=== PATIENT | male | born 1990 | race Caucasian/White ===

== ENCOUNTER 2016-04-07 12:19 | Inpatient (IN) | payer OTHER ==
--- NOTE | ~2016-04-07 | DS ---
Unit #: [id number] #: [id number] Patient: KHADIJAH APARICIO [id number] [facility] [address] [place] [address] [id number] MR#: [id number] NAME: KHADIJAH APARICIO ROOM: [facility] Age: 25 Sex: M Admission Date: 04/07/2016 : 1990 Discharge Date: 04/12/2016 Attending Physician: Hugh Godinez M.D. Primary Care Physician: Generic Doctor Not In System DISCHARGE SUMMARY REASON FOR ADMISSION Depression. DIAGNOSTIC STUDIES LABORATORY RESULTS: Unremarkable. HOSPITAL COURSE The patient was admitted to inpatient unit on 04/07/2016 and discharged on 04/12/2016. The patient was treated on the inpatient unit with expressive therapy, medication management, psychoeducation, and psychotherapy. The patient was on 72-hour hold. The patient responded well with the above modalities of treatment. Family was involved. The patient was subsequently discharged with a plan to follow up in outpatient program. DISCHARGE MEDICATIONS Zyprexa 10 mg daily for psychosis, Lamictal 50 mg b.i.d. for mood stabilization, and trazodone 50 mg at bedtime for sleep. DISCHARGE DIAGNOSES Psychiatric: 1. Bipolar mood disorder, not otherwise specified, currently in manic state, F33.13. 2. Cannabis abuse, moderate, F12.20, by history. Secondary diagnosis: Deferred. Medical diagnosis: None. Stressors: Psychosocial stressors. DISCHARGE INSTRUCTIONS The patient is to follow up in outpatient clinic as per vp digital marketing social media and crm. CONDITION ON DISCHARGE The patient was pleasant and cooperative. Denied any psychotic symptom or any suicidal ideation. PROGNOSIS Guarded. DIET AND ACTIVITY As tolerated. Unit #: [id number] #: [id number] Patient: KHADIJAH APARICIO Dictated by... Hugh Godinez M.D. SZC/shane TD: 04/12/2016 22:33 JOB #: [id number] DISCHARGE SUMMARY X Hugh Godinez MD X DISCHARGE SUMMARY
--- NOTE | ~2016-04-07 | PN ---
Unit #: [id number] #: [id number] Patient: KHADIJAH APARICIO [id number] [facility] [address] [place] [address] [id number] I MR#: [id number] NAME: KHADIJAH APARICIO ROOM: P123 Age: 25 Sex: M Admission Date: 04/07/2016 : 1990 Attending Physician: Hugh Godinez M.D. Admitting Physician: Hugh Godinez M.D. Primary Care Physician: Erik Doctor Not In System [facility] PROGRESS NOTES DATE 04/08/2016 DISCUSSION Khadijah Aparicio is a 25-year-old male seen on 04/08/2016. The patient interviewed, chart reviewed. Obtained information from nursing staff. The patient's labs showed CBC unremarkable. Thyroid function test within normal range. The patient's vital signs 97.3, 59, 16, 106/53. The patient's behavior continues to be bizarre, isolative, guarded, flat, affect withdrawn. The patient did not show any aggressive behavior. Compliant with medication, guarded, isolative. Complete review of systems unremarkable. MENTAL STATUS EXAMINATION General appearance, the patient dressed casually. Attention span and concentration poor. Oriented to place. Mood and affect sad, dysphoric flat. Speech minimum. Thought process circumstantial, guarded. Recent and remote memory poor, guarded, paranoid. Delusions but denied any thoughts of harming or others. Insight and judgement poor. DIAGNOSES 1. Bipolar mood disorder NOS. 2. Cannabis abuse moderate. ASSESSMENT/PLAN Advise to continue with current medication and therapeutic protocol. We will monitor response to medication and make further adjustment of medication. Dictated by... Julián Nelson/nidhi TD: 04/11/2016 21:52 JOB #: [id number] Unit #: [id number] #: [id number] Patient: KHADIJAH APARICIO PROGRESS NOTES X Hugh Godinez MD PROGRESS NOTE
--- NOTE | ~2016-04-07 | PN ---
Unit #: [id number] #: [id number] Patient: KHADIJAH APARICIO [id number] [facility] [address] [place] [address] [id number] I MR#: [id number] NAME: KHADIJAH APARICIO ROOM: P123 Age: 25 Sex: M Admission Date: 04/07/2016 : 1990 Attending Physician: Hugh Godinez M.D. Admitting Physician: Hugh Godinez M.D. Primary Care Physician: Generic Doctor Not In System [facility] PROGRESS NOTES DATE OF SERVICE: 04/09/2016 DISCUSSION Khadijah Aparicio is a 25-year-old male, seen on 04/09/2016. The patient interviewed, chart reviewed, obtained information from nursing staff. The patient was compliant and cooperative. Mood is sad, dysphoric, flat affect, guarded. The patient is still having paranoia, mood lability, suicidal ideation. REVIEW OF SYSTEMS Complete review of systems is unremarkable. MENTAL STATUS EXAMINATION General appearance; the patient dressed casually. Attention span and concentration, fair. Oriented in place and person. Mood and affect; labile, guarded, paranoid. Recent and remote memory, poor. Insight and judgment, poor. DIAGNOSIS Bipolar mood disorder, not otherwise specified. ASSESSMENT AND PLAN Advised to continue with current medication and therapeutic protocol. We will monitor response to medication and make further adjustment of medication. Dictated by... Julián Nelson/shane TD: 04/11/2016 06:19 JOB #: [id number] Unit #: [id number] #: [id number] Patient: KHADIJAH APARICIO PROGRESS NOTES X Hugh Godinez MD PROGRESS NOTE
--- NOTE | ~2016-04-07 | PN ---
Unit #: [id number] #: [id number] Patient: KHADIJAH APARICIO [id number] [facility] [address] [place] [address] [id number] I MR#: [id number] NAME: KHADIJAH APARICIO ROOM: P123 Age: 25 Sex: M Admission Date: 04/07/2016 : 1990 Attending Physician: Hugh Godinez M.D. Admitting Physician: Hugh Godinez M.D. Primary Care Physician: Generic Doctor Not In System [facility] PROGRESS NOTES DATE 04/10/2016 DISCUSSION Khadijah Aparicio is a 25-year-old male seen on 04/10/2016. Patient continues to be guarded, paranoid but able to maintain safe behavior. Compliant with medication. No side effects from medication. Patient reported having trouble sleeping, mood lability, circumstantial thought process. Complete review of system unremarkable. MENTAL STATUS EXAMINATION General appearance, patient dressed casually. Attention span, concentration fair. Oriented in place and person. Mood and affect labile, guarded, paranoid. Patient denied any thoughts of harming self or others or any psychotic symptoms. Denied any thoughts of harming self or others but guarded, paranoid. Recent and remote memory poor. Insight and judgement poor. DIAGNOSES 1. Psychosis NOS. 2. Bipolar mood disorder NOS. ASSESSMENT/PLAN Advised to continue with current medication and therapeutic protocol. Will monitor response to medication and make further adjustment of medication. Dictated by... Julián Nelson/talya TD: 04/12/2016 20:07 JOB #: [id number] Unit #: [id number] #: [id number] Patient: KHADIJAH APARICIO [facility] PROGRESS NOTES X Hugh Godinez MD X PROGRESS NOTE
--- NOTE | ~2016-04-07 | PN ---
Unit #: [id number] #: [id number] Patient: KHADIJAH APARICIO [id number] [facility] [address] [place] [address] [id number] I MR#: [id number] NAME: KHADIJAH APARICIO ROOM: P123 Age: 25 Sex: M Admission Date: 04/07/2016 : 1990 Attending Physician: Hugh Godinez M.D. Admitting Physician: Hugh Godinez M.D. Primary Care Physician: Generic Doctor Not In System [facility] PROGRESS NOTES DATE OF SERVICE: 04/11/2016 DISCUSSION Khadijah Aparicio is a 25-year-old male, seen on 04/11/2016. The patient interviewed, chart reviewed, and obtained information from nursing staff. The patient was compliant and cooperative. Mood was sad, dysphoric, flat affect, guarded. The patient was able to maintain safe behavior, no aggression, making progress. Complete review of systems unremarkable. MENTAL STATUS EXAMINATION General appearance, the patient dressed casually. Attention span and concentration, fair. Oriented in place and person. Mood and affect were labile. Speech, rapid. Thought process, circumstantial. The patient denied any thoughts of harming self or others, but guarded. Recent and remote memory, poor. Insight and judgment, poor. DIAGNOSIS Bipolar mood disorder, not otherwise specified. ASSESSMENT AND PLAN Advised to continue with current medication and therapeutic protocol with a plan to consider discharge tomorrow if the patient continues to do well. If needed, consider further adjustment of medication. Dictated by... Julián Nelson/shnae TD: 04/11/2016 17:32 JOB #: [id number] [facility] PROGRESS NOTES X Hugh Godinez MD PROGRESS NOTE
--- NOTE | ~2016-04-07 | HP ---
Unit #: [id number] #: [id number] Patient: KHADIJAH APARICIO [id number] [facility] [address] [place] [address] [id number] I MR#: [id number] NAME: KHADIJAH APARICIO ROOM: P123 Age: 25 Sex: M Admission Date: 04/07/2016 : 1990 Attending Physician: Hugh Godinez M.D. Admitting Physician: Hugh Godinez M.D. Primary Care Physician: Generic Doctor Not In System HISTORY AND PHYSICAL HISTORY OF PRESENT ILLNESS Khadijah is a 25-year-old male admitted on 04/07/[address] [place] [address] for what he reports as anger per records. He has a diagnosis of bipolar disorder. His father reports that he has been off of his medications. PAST MEDICAL HISTORY None. PAST SURGICAL HISTORY 1. Inguinal hernia repair. 2. Tonsillectomy. ALLERGIES No known drug allergies. SOCIAL HISTORY History of tobacco use. Occasional alcohol use and occasional marijuana use. He is currently single and living with his parents and his brother. FAMILY HISTORY Noncontributory. REVIEW OF SYSTEMS CONSTITUTIONAL: No fever or chills. HEENT: Denies any sore throat, ear pain or runny nose. CARDIOVASCULAR: Denies chest pain, irregular heart rhythm or palpitations. CHEST: Denies shortness of breath or cough. No hemoptysis. GASTROINTESTINAL: Denies nausea, vomiting, diarrhea or chronic constipation. ENDOCRINE: Denies history of increased thirst or urination. No recent significant weight loss or gain. GENITOURINARY: Denies dysuria, frequency, or hematuria. SKIN: Denies any rashes. HEMATOLOGIC: Denies history of increased bleeding or bruising. MUSCULOSKELETAL: Denies any hot, swollen joints. No generalized muscle pain. NEUROLOGIC: Denies problems with vision or speech. No frequent, severe headaches. No numbness, tingling or weakness in any extremities. Denies loss of bladder or bowel control. CURRENT MEDICATIONS 1. Zyprexa. 2. Lamictal. Unit #: [id number] #: [id number] Patient: KHADIJAH APARICIO PHYSICAL EXAMINATION GENERAL: Alert, oriented, in no acute distress. VITAL SIGNS: Blood pressure 135/73, heart rate 80, respirations 18. HEIGHT: 5 feet 7. WEIGHT: 157 pounds. SKIN: Warm and dry without rash or lesion. HEENT: Normocephalic. TMs not viewed. Oral and nasal passages clear. Conjunctivae clear. PERRLA. EOMs intact. NECK: Supple without lymphadenopathy or thyromegaly. HEART: Regular rate and rhythm without murmur. LUNGS: Clear. ABDOMEN: Soft, nontender, without masses or hepatosplenomegaly. : Not done. EXTREMITIES: No evidence of cyanosis, clubbing or edema. Moves all without focal deficit. NEUROLOGICAL: Grossly within normal limits. Cranial Nerves: II: Visual mcgill are intact. III, IV AND : Extraocular movements are intact. Pupils are equal, round and reactive to light. V: Facial sensation is grossly normal. VII: Facial movements and expression are normal. VIII: Auditory acuity grossly intact. IX, X: Uvula is midline. Phonation is normal. XI: Patient shrugs shoulders and turns head normally. XII: Tongue protrudes in the midline. Sensory and Motor Function: Sensory and motor sensation is grossly normal. Motor: moves all extremities well. Coordination: Gait is normal. Deep Tendon Reflexes: Intact. IMPRESSION Psychiatric admission. RECOMMENDATIONS PSYCHIATRIC: Per psychiatrist. MEDICAL: No contraindications to participate in facility's activities. MEDICAL PROGNOSIS Good. MEDICAL CONDITION Stable. Dictated by..Tom Mora/talya TD: 04/08/2016 16:58 JOB #: [id number] Unit #: [id number] #: [id number] Patient: KHADIJAH APARICIO HISTORY AND PHYSICAL X ANDRE SALGUERO APRN HISTORY AND PHYSICAL
--- NOTE | ~2016-04-07 | PA ---
Unit #: [id number] #: [id number] Patient: KHADIJAH APARICIO [id number] [facility] [address] [place] [address] [id number] I MR#: [id number] NAME: KHADIJAH APARICIO ROOM: [facility] Age: 25 Sex: M Admission Date: 04/07/2016 : 1990 Date of Assessment: 04/07/2016 Attending Physician: Hugh Godinez M.D. Admitting Physician: Hugh Godinez M.D. Primary Care Physician: Generic Doctor Not In System PSYCHIATRIC ASSESSMENT INFORMANTS The patient reliability, fair informant and chart reliability, good. CHIEF COMPLAINT Depression. HISTORY OF PRESENT ILLNESS Mr. Khadijah Aparicio is a 25-year-old male, seen on 04/07/2016. The patient has a history of previous treatment on an outpatient basis and inpatient at [facility]. The patient lives with his parents. The patient's family brought the patient due to jason. The patient reported that he had brain cancer and in head because of his sins. The patient did require medication so for bizarre behavior. The patient was trying to eat vomit; then after cleaning his hand with a him specialists, he attempted to lick the him specialists, bizarre behavior, guarded, paranoid, delusional. The patient was unable to give any reliable information. Reported self-harming behavior. According to the father, there are 4 or 5 family members on the paternal side of the family committed suicide. The patient needed inpatient admission at this time for psychiatric stabilization. PAST PSYCHIATRIC HISTORY Remarkable for history of previous treatment at [facility] and at [facility]. FAMILY HISTORY AND SOCIAL HISTORY Family history is remarkable for history of alcoholism and depression in brother. History of 4 to 5 family members on paternal side of the family committed suicide. No known history of any abuse. MEDICAL HISTORY Unremarkable for any chronic medical condition. Musculoskeletal; muscle strength and tone, no atrophy or abnormal movement. Gait normal. MEDICATION HISTORY The patient is on Ambien, amoxicillin, Levaquin, and Zyprexa. ALLERGIES No known drug allergies. SUBSTANCE ABUSE HISTORY History of marijuana abuse, details unknown at this time. REVIEW OF SYSTEMS Unit #: [id number] #: [id number] Patient: KHADIJAH APARICIO HEENT: Eyes, clear. Ears, nose, mouth, and throat; clear. CARDIOVASCULAR: Unremarkable. RESPIRATORY: Unremarkable. GI: Unremarkable. : Unremarkable. SKIN: Unremarkable. LYMPH NODE: Unremarkable. NEUROLOGIC: Unremarkable. ENDOCRINE: Unremarkable. HEMATOLOGIC: Unremarkable. ALLERGIC/IMMUNOLOGIC: Unremarkable. MUSCULOSKELETAL: Muscle strength and tone, no atrophy or abnormal movement. Gait normal. MENTAL STATUS EXAMINATION CONSTITUTIONAL: Measurement of vital signs; temperature 98.2, pulse 60, respiratory rate 20, blood pressure 116/65, height 5 feet 7 inches, weight 157 pounds. GENERAL APPEARANCE: The patient dressed casually. The patient did not show any facial deformity. MUSCULOSKELETAL: Please see above. PSYCHIATRIC EXAMINATION Description of speech, slow. Description of thought process, circumstantial. Description of association; guarded, paranoid, delusional, and mood lability. Description of the patient's judgment, concerning everyday activity, poor. Social situation, poor. Concerning psychiatric condition, poor. Complete mental status examination; oriented in place. Attention span and concentration, poor. Language, able to name object. Fund of knowledge, poor. Vocabulary, poor. Mood and affect, labile. Insight and judgment, poor. ASSETS AND LIABILITIES Assets, the patient is articulate. Liability, history of psychosis and substance abuse. ADMITTING DIAGNOSES Psychiatric: Bipolar mood disorder, severe, currently in a manic state, F33.13 and cannabis abuse, moderate, F12.20. Secondary diagnosis: Deferred. Medical diagnosis: None. Stressors: Psychosocial stressors. PSYCHIATRIC PLAN AND TREATMENT GOAL AND DISCHARGE PLAN 1. Advised to admit the patient on the inpatient unit. Provide safe, supportive, and structured environment. 2. Ordered labs; CBC, CMP, UA, and UDS. 3. Advised to resume current medication. The patient to attend all the programing, group therapy, individual therapy, and medication management. If needed, consider further adjustment of medication. The patient is currently on trazodone 75 mg at bedtime, Lamictal 25 mg b.i.d., and Zyprexa 5 mg b.i.d. which was increased. If needed, plan to adjust the Lamictal. Unit #: [id number] #: [id number] Patient: KHADIJAH APARICIO TREATMENT GOAL To attain euthymic mood, gain insight into his problem, and learn coping skills. DISCHARGE PLAN Plan to stabilize the patient and consider followup in outpatient program. ESTIMATED LENGTH OF STAY 5 days. Dictated by... Julián Nelson/shane TD: 04/09/2016 18:05 JOB #: [id number] PSYCHIATRIC ASSESSMENT X Hugh Godinez MD PSYCHIATRIC ASSESSMENT
[2016-04-08 10:06] LABS: BASOPHIL# 0.1 X10e3 (0-0.3); BASOPHIL% 0.7 % (0-2.5); EOSINOPHIL# 0.2 X10e3 (0-0.7); EOSINOPHIL% 2.2 % (0.0-7.0); HEMOGLOBIN 14.4 gm/dL (13.0-16.0); LYMPHOCYTE# 2.9 X10e3 (1.0-3.5); LYMPHOCYTE% 38.3 % (17.0-45.0); MEAN CELL VOLUME 84.1 FL (83-96); MEAN CORPUSCULAR HEMOGLOBIN 28.2 PG (28-34); MEAN CORPUSCULAR HGB CONC 33.5 g/dL (30-36); MEAN PLATELET VOLUME 8.1 FL (6.5-11.5); MONOCYTE# 0.7 X10e3 (0-1.0); MONOCYTE% 9.6 % (3.0-12.0); NEUTROPHIL# 3.7 X10e3 (1.5-7.1); NEUTROPHIL% 49.2 % (40-75); PLATELET COUNT 251 X10e3 (140-420); RED BLOOD COUNT 5.11 X10e (3.90-5.60); RED CELL DISTRIBUTION WIDTH 13.4 % (11.0-15.5); WHITE BLOOD COUNT 7.6 X10e3 (4.0-10.5)
[2016-04-08 10:07] LABS: DIFF IND NO
[2016-04-08 10:48] LABS: THYROID STIMULATING HORMONE 4.49 uIU/ml (0.34-5.60)
== END 2016-04-12 12:50 | DRG 885 ==
LOC: P1S 12:19
PROVIDERS: Psychiatry & Neurology Psychiatry
PROC: 3E0234Z Introduction of Serum, Toxoid and Vaccine into Muscle, Percutaneous Approach (ICD-10-PCS; principal; 2016-04-08)
DX: F31.13 Bipolar disorder, current episode manic without psychotic features, severe (principal); F12.20 Cannabis dependence, uncomplicated; Z23 Encounter for immunization
CPT/HCPCS: 84439; 84443; 85025; 90688